=== PATIENT | female | born 1935 | race Caucasian/White ===

== ENCOUNTER 2017-03-21 09:12 | Emergency (ER) | payer OTHER ==
[~2017-03-21] VITALS: Ht 152.4 cm; Wt 97.7 kg
[~2017-03-21 09:12] MED LIST: AMBIEN10 MG PO; ATORVASTATIN CA40 MG PO; CALCIUM 500 +1 EAC3 PO; CALCIUM 600 +1 EA12 PO; CALCIUM 600 +1 EAC1 PO; CARDIZEM CD,CA120 MG PO; DILTIAZEM 24HR120 MG PO; DUONEB 2.5-0.5 M3 ML AEROSOL; ELAVIL50 MG PO; ELIQUIS5 MG PO; FUROSEMIDE20 MG PO; IMIPRAMINE HCL25 MG PO; KLOR-CON M2020 MEQ PO; LASIX40 MG PO; LEVAQUIN750 MG PO; LEVOFLOXACIN750 MG PO; LISINOPRIL10 MG PO; LORAZEPAM0.5 MG PO; LOVASTATIN10 MG PO; MAGNESIUM OXID500 MG PO; MEVACOR10 MG PO; OMEPRAZOLE20 MG PO; POTASSIUM CHLO10 ME1 PO; POTASSIUM CHLO10 ME3 PO; PREDNISONE20 MG PO; PRILOSEC20 MG PO; REQUIP0.5 MG PO; ROPINIROLE HCL0.5 MG PO; SINGULAIR10 MG PO; SPIRIVA RESPIMAT4 GM IH; VALIUM5 MG PO; [UNRECOGNIZED DRUG - REMARK]
[2017-03-21 09:54] LABS: BASOPHIL (%) 0.6 % (0-1); BASOPHIL COUNT 0.1 K/uL (0-0.1); EOSINOPHIL (%) 0.2 % (0-5); HEMATOCRIT 34.1 % (36.0-46.0); LYMPHOCYTE (%) 8.2 % (15-42); LYMPHOCYTE COUNT 0.7 K/uL (1.0-2.8); MCH 25.6 PG (29.0-34.0); MCHC 29.3 G/DL (30.0-36.0); MCV 87.2 FL (83-99); MONOCYTE (%) 12.8 % (3-12); MONOCYTE COUNT 1.1 K/uL (0-0.8); NEUTROPHIL (%) 77.2 % (45-76); NEUTROPHIL COUNT 6.9 K/uL (1.8-6.4); PLATELET COUNT 291 K/uL (156-360); RBC DIS.WIDTH-CV 16.7 % (11.8-14.6); RBC DIS.WIDTH-SD 53.1 % (39-53); RED BLOOD COUNT 3.91 M/uL (3.80-5.20); WHITE BLOOD COUNT 8.9 K/uL (4.1-10.2)
[2017-03-21 10:02] LABS: INTER. NORMALIZED RATIO 2.2
[2017-03-21 10:05] LABS: PTT 30.4 SEC (25-37)
[2017-03-21 10:06] LABS: BASE EXCESS 8.4 mEq/L (-3 to +3); BICARBONATE 34.9 mEq/L (22-26); CARBOXY HGB 0.6 % (0-5); METHEMOGLOBIN 0.5 % (0-1.5); PCO2 59 mm Hg (35-45); PO2 121 mm Hg (80-100); pH 7.38 (7.35-7.45)
[2017-03-21 10:07] LABS: COMMENTS - BLOOD GASES C+; CONTINUOUS POS AIRWAY PRESSURE 5 cm H2O; DEVICE VENT; FI02 35 %; MODE SPONT; PRES. SUPPORT 10 CM/H2O; SITE LR; TOTAL RESP RATE 26 resp/min
[2017-03-21 10:09] LABS: CHLORIDE 99 mEq/L (99-109); SODIUM 139 mEq/L (136-147)
[2017-03-21 10:10] LABS: GLUCOSE 103 mg/dL (70-99)
[2017-03-21 10:14] LABS: GFR ESTIMATE (CALCULATED) 56 mL/min/; TROP-I INTERPRETATION NEGATIVE; TROPONIN-I 0.01 ng/mL (0.0-0.30)
[2017-03-21 10:15] LABS: UREA NITROGEN (BUN) 24 mg/dL (9-23)
[2017-03-21 15:54] VITALS: BP 115/64
== END 2017-03-21 16:02 | disposition designated cancer center or children's hospital, planned readmission (85) ==
LOC: EME 09:12
PROVIDERS: Emergency Medicine
DX: J44.1 Chronic obstructive pulmonary disease with (acute) exacerbation (principal); J96.91 Respiratory failure, unspecified with hypoxia; I48.91 Unspecified atrial fibrillation; R94.31 Abnormal electrocardiogram [ECG] [EKG]; I11.0 Hypertensive heart disease with heart failure; I50.9 Heart failure, unspecified; J44.9 Chronic obstructive pulmonary disease, unspecified; Z79.01 Long term (current) use of anticoagulants; Z85.9 Personal history of malignant neoplasm, unspecified; Z90.710 Acquired absence of both cervix and uterus; Z90.89 Acquired absence of other organs; Z88.6 Allergy status to analgesic agent; Z88.5 Allergy status to narcotic agent; Z88.0 Allergy status to penicillin; Z88.8 Allergy status to other drugs, medicaments and biological substances; Z87.891 Personal history of nicotine dependence
CPT/HCPCS: 36600; 71045; 80048; 82803; 83880; 84484; 85025; 85610; 85730; 93005; 94002; 94644; 94760; 99281; 99284; J1100; J7644

== ENCOUNTER 2017-10-01 17:59 | Emergency (ER) | payer OTHER ==
[~2017-10-01] VITALS: Ht 152.4 cm; Wt 92.0 kg
[2017-10-01 18:44] LABS: HEMATOCRIT 36.1 % (36.0-46.0); HEMOGLOBIN 11.3 G/DL (11.9-15.5); MCH 26.8 PG (29.0-34.0); MCHC 31.3 G/DL (30.0-36.0); MCV 85.7 FL (83-99); NRBC (%) 0.1 /100 WBC (0-0); PLATELET COUNT 337 K/uL (156-360); RBC DIS.WIDTH-CV 21.2 % (11.8-14.6); RBC DIS.WIDTH-SD 66.3 % (39-53); RED BLOOD COUNT 4.21 M/uL (3.80-5.20)
[2017-10-01 18:52] LABS: ALBUMIN 3.3 g/dL (3.2-4.8); CHLORIDE 85 mEq/L (99-109); PTT 40.6 SEC (25-37); SODIUM 133 mEq/L (136-147)
[2017-10-01 18:54] LABS: GLUCOSE 129 mg/dL (70-99)
[2017-10-01 18:55] LABS: POTASSIUM 6.3 mEq/L (3.7-5.4)
[2017-10-01 18:56] LABS: TOTAL BILIRUBIN 0.6 mg/dL (0.0-1.0)
[2017-10-01 18:58] LABS: ALKALINE PHOSPHATASE 76 IU/L (3-129); CREATININE 3.4 mg/dL (0.6-1.3); GFR ESTIMATE (CALCULATED) 14 mL/min/
[2017-10-01 19:00] LABS: AST (GOT) 15 IU/L (2-34)
[2017-10-01 19:01] LABS: ALT (GPT) 16 IU/L (3-49)
[2017-10-01 19:04] LABS: UREA NITROGEN (BUN) 104 mg/dL (9-23)
[2017-10-01 19:04] LABS: TROP-I INTERPRETATION NEGATIVE; TROPONIN-I 0.03 ng/mL (0.0-0.30)
[2017-10-01 19:05] LABS: LIPASE < 1 U/L (1.0-51.0)
[2017-10-01 19:09] VITALS: BP 91/74
[2017-10-01 19:20] LABS: INTER. NORMALIZED RATIO 6.5
[2017-10-01 19:40] LABS: ABS NEUTROPHIL COUNT 21.1; ANISOCYTOSIS 1+; ATYPICAL LYMPHOCYTE 0.4 %; BAND NEUTROPHILS 18.3 % (0-8.0); EOSINOPHIL ABS CT 0; LYMPHOCYTES 4.4 % (15.0-45.0); METAMYELOCYTES 0.4 %; MICROCYTOSIS 1+; MONOCYTES 2.6 % (0-9.0); MYELOCYTES 0.4 %; NUCLEATED RBC'S 0.4; PLAT.SUFFICIENCY ADEQUATE; POIKILOCYTOSIS 1+; SEG.NEUTROPHILS 73.5 % (46.0-76.0); SMUDGE CELLS 0.9
== END 2017-10-01 21:30 ==
LOC: EME 17:59
PROVIDERS: Emergency Medicine
DX: R65.21 Severe sepsis with septic shock (principal); K56.7 Ileus, unspecified; N17.9 Acute kidney failure, unspecified; J96.91 Respiratory failure, unspecified with hypoxia; I46.9 Cardiac arrest, cause unspecified; J44.9 Chronic obstructive pulmonary disease, unspecified; I10 Essential (primary) hypertension; Z90.711 Acquired absence of uterus with remaining cervical stump; Z87.891 Personal history of nicotine dependence; Z88.0 Allergy status to penicillin; Z88.5 Allergy status to narcotic agent; Z88.6 Allergy status to analgesic agent; Z88.8 Allergy status to other drugs, medicaments and biological substances
CPT/HCPCS: 74176; 80047; 80053; 81003; 83605; 83690; 84484; 85025; 85610; 85730; 86850; 86900; 86901; 87040; 93005; 94640; 99281; 99285; J2405; J2930